=== PATIENT | female | born 1950 | race Caucasian/White ===

== ENCOUNTER → 2016-11-09 16:00 | Outpatient (CLI) | payer MEDICARE ==
[2015-04-14 09:21] VITALS: BMI 33.5
[~2016-11-09 16:00] MED LIST: ASCORBIC ACID500 MG PO; CALTRATE 600 M600 M1 PO; FISH OIL 500 MG1 CAP PO; FLUTICASONE PRO16 GM NASAL; LIPITOR40 MG PO; MULTIPLE VITAMI1 TA1 PO; OSTEO BI-FLEX1 EAC1 PO; PROAIR HFA8.5 GM INH; QVAR8.7 GM INH; SINGULAIR10 MG PO; SUPER B COMPLE150 MG PO; VITAMIN D3400 UNI1 PO
== END | disposition home or self-care (01) ==
LOC: D.MAMMO 15:30
DX: Z12.31 Encounter for screening mammogram for malignant neoplasm of breast (principal)

== ENCOUNTER 2017-06-07 13:32 | Emergency (ER) | payer MEDICARE ==
[2015-04-14 09:21] VITALS: BMI 33.5
== END 2017-06-07 15:57 | disposition home or self-care (01) ==
LOC: D.ER 13:32
DX: G51.0 Bell's palsy (principal)

== ENCOUNTER → 2018-03-19 12:59 | Outpatient (CLI) | payer MEDICARE, OTHER ==
[2015-04-14 09:21] VITALS: BMI 33.5
== END | disposition home or self-care (01) ==
LOC: D.US 12:59
DX: N39.0 Urinary tract infection, site not specified (principal)

== ENCOUNTER → 2018-10-03 10:43 | Outpatient (CLI) | payer MEDICARE, OTHER ==
[2015-04-14 09:21] VITALS: BMI 33.5
== END | disposition home or self-care (01) ==
LOC: D.US 10:43
PROVIDERS: ATTEND Family Medicine
DX: N28.1 Cyst of kidney, acquired (principal)

== ENCOUNTER 2019-04-09 09:00 | Outpatient (CLI) | payer MEDICARE, OTHER ==
[2015-04-14 09:21] VITALS: BMI 33.5
== END 2019-04-09 10:00 | disposition home or self-care (01) ==
LOC: D.MAMMO 09:00
PROVIDERS: ATTEND Nurse Practitioner Family
DX: Z12.31 Encounter for screening mammogram for malignant neoplasm of breast (principal)